=== PATIENT | female | born 1940 | race Caucasian/White ===

== ENCOUNTER → 2016-12-21 | Outpatient (CLI) | payer OTHER | LOC: CIMAGING 09:58 | DX: Z12.31 Encounter for screening mammogram for malignant neoplasm of breast (principal); Z80.3 Family history of malignant neoplasm of breast | CPT/HCPCS: G0202 ==

== ENCOUNTER → 2017-01-02 | Outpatient (CLI) | payer OTHER | LOC: CIMAGING 12:56 | DX: Z12.39 Encounter for other screening for malignant neoplasm of breast (principal); R92.2 Inconclusive mammogram | CPT/HCPCS: G0206 ==

== ENCOUNTER → 2017-12-17 | Outpatient (CLI) | payer OTHER | LOC: CIMAGING 09:59 | PROVIDERS: ATTEND Family Medicine | DX: Z12.31 Encounter for screening mammogram for malignant neoplasm of breast (principal) ==

== ENCOUNTER → 2018-04-05 | Outpatient (CLI) | payer OTHER ==
[~2018-04-05] MED LIST: IOPAMIDOL (ISOVUE-300) 100 ML BTL ONE
== END ==
LOC: FIMAGING 14:53
PROVIDERS: ATTEND Surgery
DX: E04.2 Nontoxic multinodular goiter (principal); N28.9 Disorder of kidney and ureter, unspecified; K44.9 Diaphragmatic hernia without obstruction or gangrene; J98.09 Other diseases of bronchus, not elsewhere classified
CPT/HCPCS: 70491; 71260; Q9967

== ENCOUNTER 2018-04-22 07:32 | Emergency (ER) | payer OTHER ==
--- NOTE | 2018-04-22 07:57 | EDPHY ---
H & P Stated Complaint: chronic cough worsening-blood tinged sputum this am Time Seen by Provider: 04/22/18 07:41 HPI/ROS: Chief Complaint: Spitting up blood HPI: 77-year-old woman woke up this morning and cleared her throat and noticed blood in her sputum. She says she did not cough. She has had a dry cough because of the smoke in the air recently. No fevers or chills. Cough has been nonproductive. She also has noticed that her sinuses have been very dry. Is not aware of any epistaxis. No blood on her pillow. No shortness of breath. ROS: 10 point Review of Systems is negative except as noted in the HPI. Social History: No smoking, no alcohol, no recreational drug use Family History: non-contributory Physical Exam: Gen: Awake, Alert, No Distress HEENT: [Nose: no rhinorrhea, superficial friable blood vessels are noted. There is a small amount of dried blood accumulated in the posterior right nostril. Eyes: PERRLA, EOMI Mouth: Moist mucosa normal oropharynx Neck: Supple, no JVD Chest: nontender, lungs clear to auscultation Heart: S1, S2 normal, no murmur Abd: Soft, non-tender, no guarding Back: no CVA tenderness, no midline tenderness Ext: no edema, non-tender Skin: no rash Neuro: CN II-XII intact, Sensation grossly intact, Strength 5/5 in bilateral upper and lower extremities - Personal History Current Tetanus/Diphtheria Vaccine: Yes - Medical/Surgical History Hx Asthma: No Hx Chronic Respiratory Disease: No Hx Diabetes: No Hx Cardiac Disease: No Hx Renal Disease: No Hx Cirrhosis: No Hx Alcoholism: No Hx HIV/AIDS: No Hx Splenectomy or Spleen Trauma: No Other PMH: med hx-gerd,parathyroid,htn,restless leg. surg-thyroid x2, tonsilectomy,hyst - Social History Smoking Status: Never smoked Constitutional: Initial Vital Signs Temperature (C) 37.1 C 04/22/18 07:36 Heart Rate 77 04/22/18 07:36 Respiratory Rate 20 04/22/18 07:36 Blood Pressure 182/90 H 04/22/18 07:36 O2 Sat (%) 93 04/22/18 07:36 O2 Delivery Mode Room Air Allergies/Adverse Reactions: latex Allergy (Verified 04/22/18 07:40) Sulfa (Sulfonamide Antibiotics) Allergy (Verified 04/22/18 07:40) Home Medications: Medication Instructions Recorded Amlodipine Besylate 04/22/18 Aspirin 04/22/18 Atenolol 04/22/18 Atorvastatin Calcium 04/22/18 Glucosamine Chondroit MSM Tab 04/22/18 Levothyroxine 04/22/18 Lisinopril 04/22/18 Lisinopril/Hydrochlorothiazide 04/22/18 Point-3 04/22/18 Omeprazole 04/22/18 Vitamin B12 04/22/18 Vitamin D3 04/22/18 Zantac 04/22/18 rOPINIRole HCL 04/22/18 Medical Decision Making ED Course/Re-evaluation: 77-year-old woman who spat up a little blood likely secondary to a nosebleed this morning. She has not been coughing up blood. She has not have any respiratory complaints at this time. Her lung exam is normal. Her vital signs and oxygenation are normal. I have encouraged her to use her humidifier at home. She will follow up with primary care physician. Departure - Departure Disposition: Home, Routine, Self-Care Clinical Impression: Epistaxis Condition: Good Instructions: Nosebleed (ED) Additional Instructions: Follow up with primary care physician in 3-4 days for any concerns. Referrals: Carolina Jade MD [Primary Care Provider] - As per Instructions
[2018-04-22 08:04] VITALS: BP 143/81
== END 2018-04-22 08:00 | disposition home or self-care (01) ==
LOC: CED 07:32
DX: R04.0 Epistaxis (principal); I10 Essential (primary) hypertension; Z79.82 Long term (current) use of aspirin; Z91.040 Latex allergy status

== ENCOUNTER → 2018-12-18 | Outpatient (CLI) | payer OTHER | LOC: CIMAGING 09:44 | PROVIDERS: ATTEND Family Medicine | DX: Z12.31 Encounter for screening mammogram for malignant neoplasm of breast (principal); Z80.3 Family history of malignant neoplasm of breast ==